=== PATIENT | female | born 1995 | race Caucasian/White ===

== ENCOUNTER 2018-03-05 15:12 | Emergency (ER) | payer BC ==
--- NOTE | 2018-03-05 16:29 | UC ---
General HPI - HPI Summary HPI Summary: pt states she nearly fainted last pm-she describes this as light headed, ringing ears and tunnel vision. this occured about 1 hour after she smoked marijuana and she was nauseated at the time. it lasted about 1 minute but she still feels off today. no cp, sob, calf pain or swelling. - History of Current Complaint Chief Complaint: UCGeneralIllness Stated Complaint: NAUSEAUS, LIGHT HEADED Time Seen by Provider: 03/05/18 15:50 Hx Obtained From: Patient Hx Last Menstrual Period: 02/20/18 Pain Intensity: 0 Alleviating: sitting and drinking water Associated Signs & Symptoms: Positive: Nausea. Negative: Chest Pain, Dizziness - Allergy/Home Medications Allergies/Adverse Reactions: Allergies Allergy/AdvReac Type Severity Reaction Status Date / Time amoxicillin Allergy Rash Verified 03/05/18 15:38 Home Medications: Home Medications Iron 18 mg PO DAILY 03/05/18 [History Confirmed 03/05/18] Nuvaring 1 % VAGINAL MONTHLY 03/05/18 [History Confirmed 03/05/18] Vitamin B Complex TAB* [B Complex-50*] 1 tab PO DAILY 03/05/18 [History Confirmed 03/05/18] PMH/Surg Hx/FS Hx/Imm Hx Previously Healthy: Yes - Surgical History Surgical History: Yes Surgery Procedure, Year, and Place: wisdom teeth - Family History Known Family History: Positive: Other - thyroid proble in father - Social History Occupation: Student Lives: Dormitory/Roommates Alcohol Use: Weekly Substance Use Type: Marijuana Smoking Status (MU): Never Smoked Tobacco - Immunization History Vaccination Up to Date: Yes Review of Systems Constitutional: Negative Skin: Negative Eyes: Negative ENT: Negative Respiratory: Negative Cardiovascular: Negative Gastrointestinal: Nausea Genitourinary: Negative Motor: Negative Neurovascular: Negative Musculoskeletal: Negative Neurological: Weakness Psychological: Negative Is Patient Immunocompromised?: No All Other Systems Reviewed And Are Negative: Yes Physical Exam Triage Information Reviewed: Yes Appearance: Well-Appearing Vital Signs: Initial Vital Signs Temp 99 F 03/05/18 15:36 Pulse 74 03/05/18 15:36 Resp 16 03/05/18 15:36 BP 116/67 03/05/18 15:36 Pulse Ox 100 03/05/18 15:36 Vital Signs Reviewed: Yes Eyes: Positive: Conjunctiva Clear ENT: Positive: Pharynx normal, TMs normal. Negative: Nasal congestion, Nasal drainage Neck: Positive: Supple, Nontender, No Lymphadenopathy Respiratory: Positive: Lungs clear, Normal breath sounds Cardiovascular: Positive: RRR, No Murmur, Pulses Normal Abdomen Description: Positive: Nontender, No Organomegaly, Soft Bowel Sounds: Positive: Present Musculoskeletal: Positive: ROM Intact, No Edema, Other: - no calf tenderness or cords Neurological: Positive: Alert, Other: - CN 2-12 grossly intact. s/v/m intact x4. Normal gait Psychological: Positive: Age Appropriate Behavior Skin Exam: Normal Diagnostics - Laboratory Diagnostic Studies Completed/Ordered: FS BS=84. no orthostatic changes, see results in nures note. hcg=neg - EKG Cardiac Rate: NL Cardiac Rhythm: Sinus: Normal Ectopy: None ST Segment: Normal Course/Dx - Course Course Of Treatment: non toxic, ekg unremarkable, fs bs wnl and no orhtostatic changes. had smoke marijuana 1 hour prior and was feeling nauseous thus marijuanna side effect and vasovagal are both possibilities-pt advised of this. no ER transfer required. close f/u stressed and go to ER for any changes, reoccurance or worsening. - Differential Dx - Multi-Symptom Provider Diagnoses: Near syncope. Possible vasovagal reaction. Possible marijuana side effect Discharge - Sign-Out/Discharge Documenting (check all that apply): Discharge - Discharge Plan Condition: Stable Disposition: HOME Patient Education Materials: Near Syncope (ED) Additional Instructions: FOLLOW UP [facility] FOR A RECHECK IN 3 DAYS OR SOONER IF WORSE. - Billing Disposition and Condition Condition: STABLE Disposition: HOME
[2018-03-05 16:30] VITALS: BP 112/69
== END 2018-03-05 16:49 | disposition home or self-care (01) ==
LOC: UCCORT 15:12
DX: R55 Syncope and collapse (principal); Z32.02 Encounter for pregnancy test, result negative; F12.90 Cannabis use, unspecified, uncomplicated; Z88.0 Allergy status to penicillin
CPT/HCPCS: 84702; 93005; 99202; G0463

== ENCOUNTER 2018-03-15 17:46 | Emergency (ER) | payer BC ==
[2018-03-15 18:24] VITALS: BP 128/78
--- NOTE | 2018-03-15 19:11 | UC ---
Complaint Female HPI - HPI Summary HPI Summary: Sudden onset of frequency, urgency, dysuria, hematuria that began today. - History Of Current Complaint Chief Complaint: UCGU Stated Complaint: UTI SYMPTOMS Time Seen by Provider: 03/15/18 19:05 Hx Obtained From: Patient Hx Last Menstrual Period: 02/24/18 ?: No Onset/Duration: Sudden Onset, Still Present Timing: Constant Severity Initially: Mild Severity Currently: Mild Pain Intensity: 5 Character: Burning Aggravating Factor(s): Urination Associated Signs And Symptoms: Positive: Negative - Risk Factors Ectopic Risk Factor: Negative - Allergies/Home Medications Allergies/Adverse Reactions: Allergies Allergy/AdvReac Type Severity Reaction Status Date / Time amoxicillin Allergy Rash Verified 03/15/18 18:24 Home Medications: Home Medications Acetaminophen TAB* [Tylenol TAB*] 650 mg PO Q4H PRN 03/15/18 [History Confirmed 03/15/18] PMH/Surg Hx/FS Hx/Imm Hx Previously Healthy: Yes - Surgical History Surgical History: Yes Surgery Procedure, Year, and Place: wisdom teeth - Family History Known Family History: Positive: Cardiac Disease, Other - thyroid proble in father - Social History Occupation: Student Lives: With Family Alcohol Use: Weekly Substance Use Type: Marijuana Smoking Status (MU): Never Smoked Tobacco Have You Smoked in the Last Year: No - Immunization History Vaccination Up to Date: Yes Review of Systems Constitutional: Negative Skin: Negative Eyes: Negative ENT: Negative Respiratory: Negative Cardiovascular: Negative Gastrointestinal: Negative Genitourinary: Dysuria, Hematuria, Frequency, Urgency Motor: Negative Neurovascular: Negative Musculoskeletal: Negative Neurological: Negative Psychological: Negative Is Patient Immunocompromised?: No All Other Systems Reviewed And Are Negative: Yes Physical Exam Triage Information Reviewed: Yes Appearance: Well-Appearing Vital Signs: Initial Vital Signs Temp 98.3 F 03/15/18 18:21 Pulse 78 03/15/18 18:21 Resp 18 03/15/18 18:21 BP 128/78 03/15/18 18:21 Pulse Ox 100 03/15/18 18:21 Vital Signs Reviewed: Yes Eye Exam: Normal Neck exam: Normal Respiratory Exam: Normal Cardiovascular Exam: Normal Abdominal Exam: Normal Musculoskeletal Exam: Normal Neurological Exam: Normal Psychological Exam: Normal Skin Exam: Normal Complaint Female Dx - Differential Dx/Diagnosis Differential Diagnosis/HQI/PQRI: Urinary Tract Infection Provider Diagnoses: UTI. hematuria Discharge - Sign-Out/Discharge Documenting (check all that apply): Discharge - Discharge Plan Condition: Stable Disposition: HOME Prescriptions: Phenazopyridine TAB* [Pyridium 100 mg TAB*] 100 mg PO Q8H #6 tab Sulfamethox/Trimethoprim DS* [Bactrim DS 800/160 TAB*] 1 tab PO Q12H #10 tab Patient Education Materials: Urinary Tract Infection in Women (ED) Referrals: Non Staff,Doctor [Primary Care Provider] - If Needed Additional Instructions: Please follow up with your PCP or return to clinic as needed. - Billing Disposition and Condition Condition: STABLE Disposition: HOME
== END 2018-03-15 19:20 | disposition home or self-care (01) ==
LOC: UCCORT 17:46
DX: N39.0 Urinary tract infection, site not specified (principal); R31.9 Hematuria, unspecified; B96.20 Unspecified Escherichia coli [E. coli] as the cause of diseases classified elsewhere; Z88.0 Allergy status to penicillin
CPT/HCPCS: 81003; 87077; 87086; 87186; 99212; G0463

== ENCOUNTER 2018-08-19 15:45 | Emergency (ER) | payer BC ==
--- NOTE | 2018-08-19 18:28 | UC ---
Complaint Female HPI - HPI Summary HPI Summary: Patient states "I think I have a UTI". She describes this as frequency, burning and urgency with urination. She reports she's had 2 UTIs in the past and this feels the same. She denies any associated abdominal pain, fever as well as risk and concern for pelvic infection. Patient is self treating with extra hydration - History Of Current Complaint Stated Complaint: URINARY Time Seen by Provider: 08/19/18 18:17 Hx Obtained From: Patient Hx Last Menstrual Period: 02/24/18 Onset/Duration: Gradual Onset Timing: Constant Alleviating Factor(s): Nothing Associated Signs And Symptoms: Negative: Fever, Back Pain, Vaginal Bleeding/ Discharge, Vaginal Discharge, Genital Swelling - Allergies/Home Medications Allergies/Adverse Reactions: Allergies Allergy/AdvReac Type Severity Reaction Status Date / Time amoxicillin Allergy Rash Verified 03/15/18 18:24 Home Medications: Home Medications Iud 08/19/18 [History] PMH/Surg Hx/FS Hx/Imm Hx - Additional Past Medical History Additional PMH: utix2 - Surgical History Surgical History: Yes Surgery Procedure, Year, and Place: wisdom teeth - Family History Known Family History: Positive: Cardiac Disease, Other - thyroid proble in father - Social History Occupation: Student Lives: Dormitory/Roommates Alcohol Use: Weekly Substance Use Type: Marijuana Smoking Status (MU): Never Smoked Tobacco Have You Smoked in the Last Year: No - Immunization History Vaccination Up to Date: Yes Review of Systems Constitutional: Negative Skin: Negative Eyes: Negative ENT: Negative Respiratory: Negative Cardiovascular: Negative Gastrointestinal: Negative Genitourinary: Dysuria, Frequency, Urgency Motor: Negative Neurovascular: Negative Musculoskeletal: Negative Neurological: Negative Psychological: Negative Is Patient Immunocompromised?: No All Other Systems Reviewed And Are Negative: Yes Physical Exam Triage Information Reviewed: Yes Appearance: Well-Appearing Vital Signs Reviewed: Yes Eyes: Positive: Conjunctiva Clear ENT: Positive: Normal ENT inspection Neck: Positive: Supple, Nontender, No Lymphadenopathy Respiratory: Positive: Lungs clear, Normal breath sounds Cardiovascular: Positive: RRR, No Murmur Abdomen Description: Positive: Nontender, No Organomegaly, Soft. Negative: CVA Tenderness (R), CVA Tenderness (L), Distended, Guarding Bowel Sounds: Positive: Present Musculoskeletal: Positive: ROM Intact Neurological: Positive: Alert Psychological: Positive: Age Appropriate Behavior Skin Exam: Normal Diagnostics - Laboratory Diagnostic Studies Completed/Ordered: u/a=trace leuks, culture pending. Complaint Female Dx - Course Course Of Treatment: Nontoxic. No acute abdomen. Patient denies risk, concern as well as signs or symptoms for any type of pelvic infection. She does have some leukocytes on her urine dip plus she has frequency urgency hesitancy and burning with urination thus going to treat her presumptively for urinary tract infection. - Differential Dx/Diagnosis Provider Diagnoses: dysuria Discharge - Sign-Out/Discharge Documenting (check all that apply): Patient Departure All imaging exams completed and their final reports reviewed: No Studies - Discharge Plan Condition: Stable Disposition: HOME Prescriptions: Nitrofurantoin Monohyd/M-Cryst [Macrobid 100 mg Capsule] 100 mg PO BID 5 Days # 10 cap Patient Education Materials: Dysuria (ED) Referrals: [facility] [Outside] - 7 Days - Billing Disposition and Condition Condition: STABLE Disposition: Home
[2018-08-19 18:35] VITALS: BP 109/67
== END 2018-08-19 18:57 | disposition home or self-care (01) ==
LOC: UCCORT 15:45
DX: R30.0 Dysuria (principal); Z88.0 Allergy status to penicillin
CPT/HCPCS: 81003; 87086; 99212; G0463

== ENCOUNTER 2018-09-02 07:42 | Emergency (ER) | payer BC ==
[2018-09-02 08:06] VITALS: BP 117/73
--- NOTE | 2018-09-02 08:18 | ED ---
GI/ HPI - HPI Summary HPI Summary: dysuria, frequency for the last several days, no fever , chills or flank pain, had IUD in place - History of Current Complaint Chief Complaint: UCGU Time Seen by Provider: 09/02/18 08:14 Stated Complaint: URINARY Hx Obtained From: Patient Hx Last Menstrual Period: 08/30/18 Onset/Duration: Started Days Ago Timing: Constant Current Severity: Moderate Pain Intensity: 6 Location of Pain: Suprapubic - Allergy/Home Medications Allergies/Adverse Reactions: Allergies Allergy/AdvReac Type Severity Reaction Status Date / Time amoxicillin Allergy Rash Verified 09/02/18 08:02 Home Medications: Home Medications Phenazopyridine TAB* [Pyridium 100 mg TAB*] 100 mg PO TID 09/02/18 [History Confirmed 09/02/18] PMH/Surg Hx/FS Hx/Imm Hx Previously Healthy: Yes - Surgical History Surgery Procedure, Year, and Place: wisdom teeth Infectious Disease History: No Infectious Disease History: Denies: Traveled Outside the [place] in Last 30 Days - Family History Known Family History: Positive: Cardiac Disease, Other - thyroid proble in father - Social History Alcohol Use: Occasionally Substance Use Type: Reports: Marijuana Substance Use Comment - Amount & Last Used: rare Smoking Status (MU): Never Smoked Tobacco Have You Smoked in the Last Year: No Review of Systems Constitutional: Negative Eyes: Negative ENT: Negative Cardiovascular: Negative Respiratory: Negative Gastrointestinal: Negative Genitourinary: Negative Musculoskeletal: Negative Skin: Negative Neurological: Negative All Other Systems Reviewed And Are Negative: Yes Physical Exam Triage Information Reviewed: Yes Vital Signs On Initial Exam: Initial Vitals Temp Pulse Resp BP Pulse Ox 36.6 C 73 16 117/73 100 09/02/18 07:54 09/02/18 07:54 09/02/18 07:54 09/02/18 07:54 09/02/18 07:54 Vital Signs Reviewed: Yes Appearance: Positive: Well-Appearing Skin: Positive: Warm, Dry Head/Face: Positive: Normal Head/Face Inspection Abdomen Description: Positive: Other: - mild suprapubic pain Diagnostics - Vital Signs Vital Signs Temp Pulse Resp BP Pulse Ox 09/02/18 07:54 36.6 C 73 16 117/73 100 - Laboratory Lab Statement: Any lab studies that have been ordered have been reviewed, and results considered in the medical decision making process. GIGU Course/Dx - Diagnoses Provider Diagnoses: UTI (urinary tract infection) Discharge - Sign-Out/Discharge Documenting (check all that apply): Patient Departure All imaging exams completed and their final reports reviewed: No Studies - Discharge Plan Condition: Good Disposition: HOME Patient Education Materials: Urinary Tract Infection in Women (ED) Referrals: No Primary Care Phys,NOPCP [Primary Care Provider] - - Billing Disposition and Condition Condition: GOOD Disposition: Home
[2018-09-02 11:16] LABS: Urine Appearance Cloudy; Urine Blood 3+ (Negative); Urine Ketones Negative (Negative); Urine Protein 2+(100 mg/dL) (Negative); Urine Red Blood Cell 3+(>10/hpf) (Absent); Urine Specific Gravity 1.003 (1.010-1.030); Urine Urobilinogen Negative (Negative); Urine White Blood Cell 3+(>20/hpf) (Absent)
[2018-09-02 11:17] LABS: Urine Color Red
== END 2018-09-02 08:22 | disposition home or self-care (01) ==
LOC: UCCORT 07:42
DX: N39.0 Urinary tract infection, site not specified (principal); Z88.0 Allergy status to penicillin
CPT/HCPCS: 81003; 81015; 87086; 99212; G0463

== ENCOUNTER 2019-03-25 20:21 | Emergency (ER) | payer BC ==
[2019-03-25 21:04] VITALS: BP 115/64
--- NOTE | 2019-03-25 21:29 | ED ---
Throat Pain/Nasal Congestion - HPI Summary HPI Summary: 24 yr old female with sore throat, runny nose and cough. Onset 2 pm today. She has no SOB. She does feel fatigued. She has not had fever and no rash. She is a student at [employer]. - History of Current Complaint Chief Complaint: UCGeneralIllness Time Seen by Provider: 03/25/19 21:16 - Allergies/Home Medications Allergies/Adverse Reactions: Allergies Allergy/AdvReac Type Severity Reaction Status Date / Time amoxicillin Allergy Rash Verified 03/25/19 21:01 PMH/Surg Hx/FS Hx/Imm Hx - Surgical History Surgery Procedure, Year, and Place: wisdom teeth Infectious Disease History: No Infectious Disease History: Denies: Traveled Outside the [place] in Last 30 Days - Family History Known Family History: Positive: Cardiac Disease, Other - thyroid proble in father - Social History Occupation: Student Alcohol Use: Occasionally Substance Use Type: Reports: None Substance Use Comment - Amount & Last Used: rare Smoking Status (MU): Never Smoked Tobacco Have You Smoked in the Last Year: No Review of Systems Constitutional: Negative Positive: Sore Throat, Nasal Discharge Positive: Cough All Other Systems Reviewed And Are Negative: Yes Physical Exam Triage Information Reviewed: Yes Vital Signs On Initial Exam: Initial Vitals Temp Pulse Resp BP Pulse Ox 99.5 F 93 17 115/64 99 03/25/19 20:59 03/25/19 20:59 03/25/19 20:59 03/25/19 20:59 03/25/19 20:59 Vital Signs Reviewed: Yes Appearance: Positive: Well-Appearing, No Pain Distress Skin: Positive: Warm, Skin Color Reflects Adequate Perfusion Head/Face: Positive: Normal Head/Face Inspection Eyes: Positive: EOMI ENT: Positive: Normal ENT inspection, Pharyngeal erythema, Nasal congestion, TMs normal Respiratory/Lung Sounds: Positive: Clear to Auscultation, Breath Sounds Present Cardiovascular: Positive: RRR. Negative: Murmur Abdomen Description: Negative: Distended Musculoskeletal: Positive: Strength/ROM Intact Neurological: Positive: Sensory/Motor Intact, Alert, Oriented to Person Place, Time, CN Intact II-III, Normal Gait, Speech Normal Psychiatric: Positive: Normal - Furlong Coma Scale Best Eye Response: 4 - Spontaneous Best Motor Response: 6 - Obeys Commands Best Verbal Response: 5 - Oriented Coma Scale Total: 15 Diagnostics - Vital Signs Vital Signs Temp Pulse Resp BP Pulse Ox 03/25/19 20:59 99.5 F 93 17 115/64 99 - Laboratory Lab Statement: Any lab studies that have been ordered have been reviewed, and results considered in the medical decision making process. EENT Course/Dx - Course Course Of Treatment: 24 yr old female with URI symptoms neg strep and neg flu DC home - Diagnoses Provider Diagnoses: Upper respiratory infection Discharge - Sign-Out/Discharge Documenting (check all that apply): Patient Departure All imaging exams completed and their final reports reviewed: No Studies - Discharge Plan Condition: Good Disposition: HOME Patient Education Materials: Upper Respiratory Infection (ED) Referrals: No Primary Care Phys,NOPCP [Primary Care Provider] - [facility] [place] [facility] [Outside] - 2 Days - Billing Disposition and Condition Condition: GOOD Disposition: Home
[2019-03-25 21:42] LABS: Influenza A Molecular NEGATIVE (Negative); Influenza B Molecular NEGATIVE (Negative)
== END 2019-03-25 22:06 | disposition home or self-care (01) ==
LOC: UCCORT 20:21
DX: J06.9 Acute upper respiratory infection, unspecified (principal); Z88.0 Allergy status to penicillin
CPT/HCPCS: 87651; 99211; G0463